=== PATIENT | female | born 1990 | race Caucasian/White ===

== ENCOUNTER → 2025-01-22 | Outpatient (CLI) | payer OTHER, SELFPAY | END | disposition home or self-care (01) | LOC: LABSPEC 15:36 | DX: H71.91 Unspecified cholesteatoma, right ear (principal); H16.8 Other keratitis | CPT/HCPCS: 88305; 88311 ==

== ENCOUNTER → 2025-09-24 | Outpatient (CLI) | payer OTHER, SELFPAY | END | disposition home or self-care (01) | DX: H71.91 Unspecified cholesteatoma, right ear (principal); H90.11 Conductive hearing loss, unilateral, right ear, with unrestricted hearing on the contralateral side | CPT/HCPCS: 88304; 88305 ==